=== PATIENT | male | born 1960 | race Caucasian/White ===

== ENCOUNTER 2018-05-05 13:33 | Inpatient (IN) | payer MEDICAID ==
[~2018-05-05] VITALS: Ht 170.2 cm; Wt 77.6 kg
[2018-05-05 14:03] VITALS: Ht 170.2 cm; Wt 77.6 kg
[2018-05-05 14:21] LABS: BASOPHIL % 0.2 % (0-2); PLATELET COUNT 164 x10^3mcL (130-400); RED CELL DISTRIBUTION WIDTH 14.1 % (11.5-14.5)
[2018-05-05 14:30] LABS: CALCIUM 8.7 mg/dL (8.5-10.1); CARBON DIOXIDE 28.6 mmol/L (21-32); CHLORIDE SERUM 99 mmol/L (98-107); CREATININE SERUM 0.9 mg/dL (0.7-1.3); GFR1 > 60 mL/min; GLUCOSE SERUM 118 mg/dL (74-106); POTASSIUM SERUM 4.6 mmol/L (3.5-5.1); SODIUM SERUM 133 mmol/L (136-145)
[2018-05-05 14:35] LABS: ALKALINE PHOSPHATASE 110 U/L (46-116); ALT/SGPT 39 U/L (16-63); AST/SGOT 51 U/L (15-37); BILIRUBIN TOTAL 0.3 mg/dL (0.20-1.00); TOTAL PROTEIN, SERUM 7.2 g/dL (6.4-8.2)
[2018-05-05 14:36] LABS: ALBUMIN 2.9 g/dL (3.4-5.0)
[2018-05-05 16:25] LABS: CHOLESTEROL/HDL RATIO 3.1
[2018-05-05 17:24] VITALS: BP 120/86
[2018-05-05 17:40] VITALS: BP 120/86
[2018-05-05 18:45] VITALS: BP 127/78
[2018-05-05 21:21] VITALS: BP 130/77
[2018-05-06 03:45] LABS: UA SPECIFIC GRAVITY >=1.030 (1.005-1.035); microscopic required? YES; urine erythrocyte NEGATIVE (NEGATIVE)
[2018-05-06 04:17] LABS: AMPHETAMINE QUAL UR NONE DETECTED (See below)
[2018-05-06 05:19] VITALS: BP 128/83
[2018-05-06 06:48] LABS: BASOPHIL % 0.3 % (0-2); PLATELET COUNT 160 x10^3mcL (130-400)
[2018-05-06 07:08] LABS: CALCIUM 8.3 mg/dL (8.5-10.1); CARBON DIOXIDE 29.6 mmol/L (21-32); CHLORIDE SERUM 104 mmol/L (98-107); CREATININE SERUM 0.8 mg/dL (0.7-1.3); GFR1 > 60 mL/min; GLUCOSE SERUM 120 mg/dL (74-106); POTASSIUM SERUM 4.7 mmol/L (3.5-5.1); SODIUM SERUM 140 mmol/L (136-145)
[2018-05-06 09:07] VITALS: BP 152/96
[2018-05-06 16:52] VITALS: BP 154/90
[2018-05-06 21:18] VITALS: BP 146/97
[2018-05-06 21:22] VITALS: BP 146/97
[2018-05-07 06:19] VITALS: BP 162/99
[2018-05-07 07:49] LABS: CALCIUM 9.4 mg/dL (8.5-10.1); CARBON DIOXIDE 30.7 mmol/L (21-32); CHLORIDE SERUM 101 mmol/L (98-107); CREATININE SERUM 0.8 mg/dL (0.7-1.3); GFR1 > 60 mL/min; GLUCOSE SERUM 115 mg/dL (74-106); MAGNESIUM 2.1 mg/dL (1.8-2.4); PHOSPHOROUS 3.5 mg/dL (2.5-4.9); POTASSIUM SERUM 4.7 mmol/L (3.5-5.1); SODIUM SERUM 138 mmol/L (136-145)
[2018-05-07 08:36] LABS: BASOPHIL % 0.3 % (0-2); PLATELET COUNT 231 x10^3mcL (130-400); RED CELL DISTRIBUTION WIDTH 14.3 % (11.5-14.5)
[2018-05-07 08:56] VITALS: BP 155/102
[2018-05-07 16:43] VITALS: BP 151/93
[2018-05-07 20:21] VITALS: BP 147/103
[2018-05-08 05:21] VITALS: BP 162/101
[2018-05-08 06:14] LABS: BASOPHIL % 0.3 % (0-2); PLATELET COUNT 278 x10^3mcL (130-400); RED CELL DISTRIBUTION WIDTH 14.1 % (11.5-14.5)
[2018-05-08 06:36] LABS: CALCIUM 8.9 mg/dL (8.5-10.1); CARBON DIOXIDE 29.3 mmol/L (21-32); CHLORIDE SERUM 100 mmol/L (98-107); CREATININE SERUM 0.8 mg/dL (0.7-1.3); GFR1 > 60 mL/min; GLUCOSE SERUM 124 mg/dL (74-106); MAGNESIUM 2.1 mg/dL (1.8-2.4); PHOSPHOROUS 3.7 mg/dL (2.5-4.9); POTASSIUM SERUM 4.1 mmol/L (3.5-5.1); SODIUM SERUM 138 mmol/L (136-145)
[2018-05-08 10:14] VITALS: BP 133/91
[2018-05-08 18:05] VITALS: BP 171/96
[2018-05-08 21:15] VITALS: BP 142/87
[2018-05-09 04:58] VITALS: BP 131/83
[2018-05-09 06:54] LABS: BASOPHIL % 0.3 % (0-2); PLATELET COUNT 314 x10^3mcL (130-400); RED CELL DISTRIBUTION WIDTH 14.1 % (11.5-14.5)
[2018-05-09 07:07] LABS: CALCIUM 8.6 mg/dL (8.5-10.1); CARBON DIOXIDE 27.5 mmol/L (21-32); CHLORIDE SERUM 101 mmol/L (98-107); CREATININE SERUM 0.8 mg/dL (0.7-1.3); GFR1 > 60 mL/min; GLUCOSE SERUM 118 mg/dL (74-106); MAGNESIUM 1.9 mg/dL (1.8-2.4); PHOSPHOROUS 3.5 mg/dL (2.5-4.9); SODIUM SERUM 137 mmol/L (136-145)
[2018-05-09 09:09] VITALS: BP 142/73
[2018-05-09 17:20] VITALS: BP 143/78
[2018-05-09 21:00] VITALS: BP 116/86
[2018-05-10 05:17] VITALS: BP 135/89
[2018-05-10 07:07] LABS: PLATELET COUNT 386 x10^3mcL (130-400); RED CELL DISTRIBUTION WIDTH 13.9 % (11.5-14.5)
[2018-05-10 07:13] LABS: CALCIUM 9.2 mg/dL (8.5-10.1); CHLORIDE SERUM 98 mmol/L (98-107); CREATININE SERUM 0.8 mg/dL (0.7-1.3); GFR1 > 60 mL/min; GLUCOSE SERUM 137 mg/dL (74-106); MAGNESIUM 2.3 mg/dL (1.8-2.4); PHOSPHOROUS 3.7 mg/dL (2.5-4.9); POTASSIUM SERUM 4.5 mmol/L (3.5-5.1); SODIUM SERUM 133 mmol/L (136-145)
[2018-05-10 07:21] LABS: BASOPHIL % 0 % (0-2)
[2018-05-10 09:26] VITALS: BP 128/86
[2018-05-10 10:56] VITALS: BP 128/86
[2018-05-10 16:59] VITALS: BP 118/78
[2018-05-10 21:16] VITALS: BP 104/71
[2018-05-11 05:46] VITALS: BP 120/73
[2018-05-11 06:58] LABS: BASOPHIL % 0.2 % (0-2); RED CELL DISTRIBUTION WIDTH 14.4 % (11.5-14.5)
[2018-05-11 07:10] VITALS: BP 109/66
[2018-05-11 07:28] LABS: CALCIUM 8.8 mg/dL (8.5-10.1); CARBON DIOXIDE 29.8 mmol/L (21-32); CHLORIDE SERUM 100 mmol/L (98-107); CREATININE SERUM 0.9 mg/dL (0.7-1.3); GFR1 > 60 mL/min; GLUCOSE SERUM 114 mg/dL (74-106); MAGNESIUM 2.1 mg/dL (1.8-2.4); PHOSPHOROUS 3.5 mg/dL (2.5-4.9); POTASSIUM SERUM 3.8 mmol/L (3.5-5.1); SODIUM SERUM 138 mmol/L (136-145)
[2018-05-11 07:33] LABS: PLATELET COUNT 496 x10^3mcL (130-400)
[2018-05-11 16:56] VITALS: BP 123/71
[2018-05-11 20:46] VITALS: BP 107/66
[2018-05-12 06:14] VITALS: BP 113/71
[2018-05-12 07:13] LABS: BASOPHIL % 0.2 % (0-2)
[2018-05-12 07:18] LABS: CALCIUM 8.2 mg/dL (8.5-10.1); CARBON DIOXIDE 30.5 mmol/L (21-32); CHLORIDE SERUM 101 mmol/L (98-107); CREATININE SERUM 0.8 mg/dL (0.7-1.3); GFR1 > 60 mL/min; GLUCOSE SERUM 117 mg/dL (74-106); PHOSPHOROUS 2.7 mg/dL (2.5-4.9); POTASSIUM SERUM 3.8 mmol/L (3.5-5.1); SODIUM SERUM 138 mmol/L (136-145)
[2018-05-12 07:59] VITALS: BP 113/62
[2018-05-12 10:24] LABS: PLATELET COUNT 533 x10^3mcL (130-400)
[2018-05-12 16:23] VITALS: BP 123/74
[2018-05-12 20:37] VITALS: BP 135/88
[2018-05-12 21:34] VITALS: BP 100/60
[2018-05-13 05:40] VITALS: BP 140/92
[2018-05-13 06:38] LABS: RED CELL DISTRIBUTION WIDTH 12.9 % (11.5-14.5)
[2018-05-13 06:55] LABS: CALCIUM 8.6 mg/dL (8.5-10.1); CHLORIDE SERUM 98 mmol/L (98-107); CREATININE SERUM 0.7 mg/dL (0.7-1.3); GFR1 > 60 mL/min; GLUCOSE SERUM 134 mg/dL (74-106); MAGNESIUM 2.1 mg/dL (1.8-2.4); PHOSPHOROUS 3.6 mg/dL (2.5-4.9); POTASSIUM SERUM 3.7 mmol/L (3.5-5.1); SODIUM SERUM 131 mmol/L (136-145)
[2018-05-13 08:41] VITALS: BP 140/92
[2018-05-13 09:42] VITALS: BP 122/76
[2018-05-13 10:06] LABS: BASOPHIL % 0 % (0-2)
[2018-05-13 10:07] LABS: PLATELET COUNT 661 x10^3mcL (130-400)
[2018-05-13 13:45] VITALS: BP 155/75
[2018-05-13 17:18] VITALS: BP 143/74
[2018-05-13 21:08] VITALS: BP 123/69
[2018-05-14 05:31] VITALS: BP 137/73
[2018-05-14 06:59] LABS: BASOPHIL % 0.1 % (0-2); RED CELL DISTRIBUTION WIDTH 12.7 % (11.5-14.5)
[2018-05-14 07:12] LABS: CALCIUM 8.5 mg/dL (8.5-10.1); CARBON DIOXIDE 26.6 mmol/L (21-32); CHLORIDE SERUM 103 mmol/L (98-107); CREATININE SERUM 0.7 mg/dL (0.7-1.3); GFR1 > 60 mL/min; GLUCOSE SERUM 152 mg/dL (74-106); POTASSIUM SERUM 3.9 mmol/L (3.5-5.1); SODIUM SERUM 139 mmol/L (136-145)
[2018-05-14 09:31] VITALS: BP 120/70
[2018-05-14 15:36] LABS: PLATELET COUNT 666 x10^3mcL (130-400)
[2018-05-14 16:59] VITALS: BP 132/76
[2018-05-14 21:01] VITALS: BP 137/86
[2018-05-15 05:38] VITALS: BP 149/86
[2018-05-15 06:40] LABS: CALCIUM 8.4 mg/dL (8.5-10.1); CARBON DIOXIDE 28.9 mmol/L (21-32); CHLORIDE SERUM 103 mmol/L (98-107); CREATININE SERUM 0.8 mg/dL (0.7-1.3); GFR1 > 60 mL/min; GLUCOSE SERUM 157 mg/dL (74-106); MAGNESIUM 1.9 mg/dL (1.8-2.4); PHOSPHOROUS 3.5 mg/dL (2.5-4.9); POTASSIUM SERUM 3.9 mmol/L (3.5-5.1); SODIUM SERUM 139 mmol/L (136-145)
[2018-05-15 07:08] LABS: RED CELL DISTRIBUTION WIDTH 13.9 % (11.5-14.5)
[2018-05-15 07:46] LABS: BASOPHIL % 0 % (0-2); PLATELET COUNT 665 x10^3mcL (130-400)
[2018-05-15 09:14] VITALS: BP 107/84
[2018-05-15 17:00] VITALS: BP 149/84
[2018-05-15 20:59] VITALS: BP 132/75
[2018-05-16 04:39] VITALS: BP 154/84
[2018-05-16 06:23] LABS: CALCIUM 8.3 mg/dL (8.5-10.1); CHLORIDE SERUM 103 mmol/L (98-107); CREATININE SERUM 0.7 mg/dL (0.7-1.3); GFR1 > 60 mL/min; GLUCOSE SERUM 173 mg/dL (74-106); MAGNESIUM 2.1 mg/dL (1.8-2.4); PHOSPHOROUS 3.8 mg/dL (2.5-4.9); POTASSIUM SERUM 4.2 mmol/L (3.5-5.1); SODIUM SERUM 139 mmol/L (136-145)
[2018-05-16 07:14] LABS: BASOPHIL % 0.2 % (0-2); PLATELET COUNT 634 x10^3mcL (130-400); RED CELL DISTRIBUTION WIDTH 13.9 % (11.5-14.5)
[2018-05-16 08:48] VITALS: BP 141/79
[2018-05-16 16:39] VITALS: BP 145/82
[2018-05-16 19:20] VITALS: BP 121/60
[2018-05-17 05:36] VITALS: BP 145/86
[2018-05-17 06:46] LABS: CALCIUM 8.9 mg/dL (8.5-10.1); CARBON DIOXIDE 30.3 mmol/L (21-32); CHLORIDE SERUM 99 mmol/L (98-107); CREATININE SERUM 0.8 mg/dL (0.7-1.3); GFR1 > 60 mL/min; GLUCOSE SERUM 228 mg/dL (74-106); MAGNESIUM 2.2 mg/dL (1.8-2.4); PHOSPHOROUS 3.6 mg/dL (2.5-4.9); POTASSIUM SERUM 3.9 mmol/L (3.5-5.1); SODIUM SERUM 135 mmol/L (136-145)
[2018-05-17 07:50] LABS: RED CELL DISTRIBUTION WIDTH 13.7 % (11.5-14.5)
[2018-05-17 08:08] LABS: BASOPHIL % 0 % (0-2); PLATELET COUNT 736 x10^3mcL (130-400)
[2018-05-17 08:42] VITALS: BP 126/78
[2018-05-17 15:49] VITALS: BP 131/90
[2018-05-17] MEDS ORDERED: LEVAQUIN750 MG PO (15:56)
[2018-05-17] MEDS ORDERED: LAC PO (15:59)
[2018-05-17] MEDS ORDERED: CLINDAMYCIN300 M1 PO (15:59)
[2018-05-17] MEDS ORDERED: PREDNISONE50 MG PO (16:01)
[2018-05-17] MEDS ORDERED: ATIVAN1 MG PO (16:05)
[2018-05-17] MEDS ORDERED: LISINOPRIL10 MG PO (16:10)
[2018-05-17 16:14] VITALS: BP 126/78
== END 2018-05-17 18:46 | disposition home or self-care (01) | DRG 815 ==
LOC: ED 13:33 → MU 15:09
PROVIDERS: Emergency Medicine; Family Medicine; Internal Medicine; ADMIT General Practice
DX: T52.0X Toxic effects of petroleum products (principal); J96.01 Acute respiratory failure with hypoxia; J15.9 Unspecified bacterial pneumonia; E44.0 Moderate protein-calorie malnutrition; J44.9 Chronic obstructive pulmonary disease, unspecified; E87.1 Hypo-osmolality and hyponatremia; R73.03 Prediabetes; D47.3 Essential (hemorrhagic) thrombocythemia; Z68.27 Body mass index [BMI] 27.0-27.9, adult
CPT/HCPCS: 36600; 82962; 83880; 87804; J0132; J0456; J0696; J1885; J1940; J1956; J2060; J2543; J2920; J2930; J3370; J3490; J7030; J7620; Q0092; Q9967